=== PATIENT | female | born 1965 | race Caucasian/White ===

== ENCOUNTER 2018-04-11 22:26 | Emergency (ER) | payer SELFPAY ==
[2018-04-11 22:50] VITALS: BP 167/94; PULSE 76; RESP 18; TEMP 97.9; O2SAT 98
[2018-04-11 22:58] VITALS: RESP 18; O2SAT 98
[2018-04-11] MEDS ORDERED: ALUMINUM/MAGNESIUM/SIMETH 30 ML CUP PO ONE (23:00)
[2018-04-11] MEDS ORDERED: NITROGLYCERIN 0.4 MG SL 25 TABS/BTL SL ONE (23:00)
[2018-04-11] MEDS ORDERED: ASPIRIN 81 MG CHEW TAB PO ONE (23:00)
[2018-04-11] MEDS ORDERED: LIDOCAINE VISCOUS 2% SOLN 15 ML UDC PO ONE (23:00)
--- NOTE | 2018-04-11 23:11 | RADRPT ---
EXAM DATE: 04/11/2018 11:08 PM EDT AGE/SEX: 53 years / Female INDICATIONS: Chest heaviness. CLINICAL DATA: This is the patient's initial encounter. Patient reports that signs and symptoms have been present for 1 day and indicates a pain score of 3/10. MEDICAL/SURGICAL HISTORY: None. None. COMPARISON: No prior exams available for comparison. FINDINGS: The lungs are clear without infiltrate, nodule, or mass. There is no appreciable pleural effusion for technique. Heart and mediastinum are unremarkable. CONCLUSION: No acute cardiopulmonary disease. Electronically signed by: Khadar Cazares MD 04/11/2018 11:09 PM EDT
--- NOTE | 2018-04-11 23:12 | PD ---
HPI Chief Complaint: Chest Pain Time Seen by Provider: 22:46 Travel History International Travel<30 days: No Contact w/Intl Traveler<30days: No Traveled to known affect area: No History of Present Illness HPI The patient is a 53-year-old female who presents to emergency department for chest pain. The patient states her symptoms started approximately 2 hours prior to arrival. The patient was at home, resting, which she developed back pain in the upper thoracic region. The pain radiated around to the front of the chest, the substernal, described as a "elephant sitting on my chest ", and then went to the upper abdomen. The patient complains of epigastric abdominal cramping with mild nausea. She denies any vomiting or diarrhea. The patient did note a foul taste in her mouth, possibly secondary to reflux. The patient states she had a stress test approximately 12 years ago, treadmill, which was negative. She denies any history of coronary artery disease, hypertension, hyperlipidemia, tobacco use, or diabetes. The patient does state her father had a heart attack in his 50s, however, he smoked 3 packs of unfiltered cigarettes daily and was an alcoholic per her report. She states her mother is in her 80s and healthy. She denies any exertional component. She denies any cough, diaphoresis, or shortness of breath. Symptoms are moderate. PFSH Past Medical History Anxiety: Yes Tetanus Vaccination: Unknown Influenza Vaccination: No ?: Not LMP: 1 MONTH AGO Menopausal: Yes Past Surgical History Gynecologic Surgery: Yes (TUBAL RUPTURE) Social History Alcohol Use: Yes (2-3X WEEKLY) Tobacco Use: No Substance Use: No Allergies-Medications (Allergen,Severity, Reaction): Coded Allergies: No Known Allergies (Unverified , 04/11/18) Reported Meds & Prescriptions Reported Meds & Active Scripts Active No Active Prescriptions or Reported Medications Review of Systems Except as stated in HPI: all other systems reviewed are Neg HENT: No: Lightheadedness Cardiovascular: Positive: Chest Pain or Discomfort, No: Dyspnea on exertion Respiratory: No: Shortness of Breath Gastrointestinal: Positive: Nausea, Abdominal Pain (Epigastric abdominal cramping), Indigestion, No: Vomiting Musculoskeletal: No: Weakness, Edema Neurologic: No: Dizziness Physical Exam Narrative GENERAL: Awake, alert, pleasant 53-year-old female who appears her stated age and is in no acute respiratory distress. SKIN: Focused skin assessment warm/dry. HEAD: Atraumatic. Normocephalic. EYES: Pupils equal and round. No scleral icterus. No injection or drainage. ENT: No nasal bleeding or discharge. Mucous membranes pink and moist. NECK: Trachea midline. No JVD. CARDIOVASCULAR: Regular rate and rhythm. No murmur appreciated. RESPIRATORY: No accessory muscle use. Clear to auscultation. Breath sounds equal bilaterally. GASTROINTESTINAL: Abdomen soft, minimal epigastric tenderness. MUSCULOSKELETAL: No obvious deformities. No clubbing. No cyanosis. No edema. NEUROLOGICAL: Awake and alert. No obvious cranial nerve deficits. Motor grossly within normal limits. Normal speech. PSYCHIATRIC: Appropriate mood and affect; insight and judgment normal. Data Data Last Documented VS Vital Signs Date Time Temp Pulse Resp B/P (MAP) Pulse Ox O2 Delivery O2 Flow Rate FiO2 04/12/18 00:11 78 144/75 (98) 99 Room Air 04/11/18 23:55 16 04/11/18 22:50 97.9 Orders Orders Ckmb (Isoenzyme) Profile (04/11/18 22:55) Complete Blood Count With Diff (04/11/18 22:55) Comprehensive Metabolic Panel (04/11/18 22:55) Magnesium (Mg) (04/11/18 22:55) Prothrombin Time / Inr (Pt) (04/11/18 22:55) Act Partial Throm Time (Ptt) (04/11/18 22:55) Troponin I (04/11/18 22:55) Lipase (04/11/18 22:55) Chest, Single Ap (04/11/18 22:55) Ecg Monitoring (04/11/18 22:55) Bilateral Bp Monitoring (04/11/18 22:55) Iv Access Insert/Monitor (04/11/18 22:55) Oximetry (04/11/18 22:55) Oxygen Administration (04/11/18 22:55) Aspirin Chew (Aspirin Chew) (04/11/18 23:00) Nitroglycerin Sl (Nitrostat Sl) (04/11/18 23:00) Al-Mag Hy-Si 40-40-4 Mg/Ml Liq (Mag-Al P (04/11/18 23:00) Lidocaine 2% Viscous (Xylocaine 2% Visco (04/11/18 23:00) Ondansetron Odt (Zofran Odt) (04/12/18 00:00) Troponin I (04/13/18 02:00) Nitroglycerin Sl (Nitrostat Sl) (04/12/18 00:15) Dicyclomine (Bentyl) (04/12/18 00:30) Labs Laboratory Tests Test 04/11/18 23:00 White Blood Count 9.8 TH/MM3 Red Blood Count 4.05 MIL/MM3 Hemoglobin 13.1 GM/DL Hematocrit 38.5 % Mean Corpuscular Volume 95.1 FL Mean Corpuscular Hemoglobin 32.3 PG Mean Corpuscular Hemoglobin Concent 34.0 % Red Cell Distribution Width 12.6 % Platelet Count 220 TH/MM3 Mean Platelet Volume 9.0 FL Neutrophils (%) (Auto) 59.6 % Lymphocytes (%) (Auto) 28.6 % Monocytes (%) (Auto) 8.4 % Eosinophils (%) (Auto) 3.0 % Basophils (%) (Auto) 0.4 % Neutrophils # (Auto) 5.9 TH/MM3 Lymphocytes # (Auto) 2.8 TH/MM3 Monocytes # (Auto) 0.8 TH/MM3 Eosinophils # (Auto) 0.3 TH/MM3 Basophils # (Auto) 0.0 TH/MM3 CBC Comment DIFF FINAL Differential Comment Prothrombin Time 9.8 SEC Prothromb Time International Ratio 1.0 RATIO Activated Partial Thromboplast Time 27.5 SEC Blood Urea Nitrogen 15 MG/DL Creatinine 1.10 MG/DL Random Glucose 126 MG/DL Total Protein 7.4 GM/DL Albumin 3.6 GM/DL Calcium Level 8.5 MG/DL Magnesium Level 1.9 MG/DL Alkaline Phosphatase 76 U/L Aspartate Amino Transf (AST/SGOT) 12 U/L Alanine Aminotransferase (ALT/SGPT) 22 U/L Total Bilirubin 0.1 MG/DL Sodium Level 138 MEQ/L Potassium Level 3.7 MEQ/L Chloride Level 107 MEQ/L Carbon Dioxide Level 23.8 MEQ/L Anion Gap 7 MEQ/L Estimat Glomerular Filtration Rate 52 ML/MIN Total Creatine Kinase 51 U/L Troponin I LESS THAN 0.02 NG/ML Lipase 190 U/L MDM Medical Decision Making Medical Screen Exam Complete: Yes Emergency Medical Condition: Yes Medical Record Reviewed: Yes Interpretation(s) EKG reveals normal sinus rhythm with a rate 82. Nonspecific ST changes. Inverted T-wave in lead III. Differential Diagnosis Differential diagnosis includes ACS, STEMI, GERD, esophageal spasm, gastritis, peptic ulcer disease, esophageal spasm, dissection. Narrative Course IV was ordered, however, patient declined, and the patient was placed on cardiac telemetry monitoring and continuous pulse oximetry monitoring. IV was established, labs are drawn and sent, and the patient was placed on cardiac telemetry monitoring and continuous pulse oximetry monitoring. EKG was ordered and interpreted. Chest x-ray was obtained. The patient was administered aspirin, nitroglycerin sublingual, GI cocktail. Chest x-ray is unremarkable. The patient states she had some upper abdominal cramping and subsequently threw up after the GI cocktail. She initially had some relief with the nitro, however , her discomfort came back. A second dose of nitroglycerin sublingual did not improve her pain. The patient once again refused an IV. I had a discussion with the patient regarding 23 hour observation of the chest pain center versus IV fluids and medications for her cramping. The patient does not want an IV placed. As the patient continued to complain of abdominal cramping, she was administered Bentyl 20 mg orally. The patient appears to have epigastric discomfort with cramping as well as substernal chest pain, could be GERD/ esophagitis/esophageal spasm versus atypical ACS. I had a discussion with the patient regarding 23 hour observation, she does not want to be a 23 hour observation. Therefore, second troponin was ordered at the 3 hour level. Diagnosis Primary Impression: Atypical chest pain Additional Impression: Abdominal cramping Patient Instructions: General Instructions Additional Instructions: Follow-up with your primary physician. Please provide the patient a copy of her EKG, lab results, chest x-ray results at discharge. Take a baby aspirin daily. Return if symptoms worsen or progress. Scripts No Active Prescriptions or Reported Meds Disposition: DISCHARGE HOME Condition: Stable Berry Melchor MD April 11, 2018 23:12
[2018-04-11 23:20] LABS: AUTOMATED NEUTROPHIL # 5.9 TH/MM3 (1.8-7.7); BASOPHIL % 0.4 % (0.0-2.0); EOSINOPHIL # 0.3 TH/MM3 (0-0.4); HEMATOCRIT 38.5 % (35.0-46.0); HEMOGLOBIN 13.1 GM/DL (11.6-15.3); LYMPH % 28.6 % (9.0-44.0); LYMPHOCYTE # 2.8 TH/MM3 (1.0-4.8); MEAN CELL VOLUME 95.1 FL (80.0-100.0); MEAN CORPUSCULAR HEMOGLOBIN 32.3 PG (27.0-34.0); MONO % 8.4 % (0.0-8.0); MONOCYTE # 0.8 TH/MM3 (0-0.9); NEUT % 59.6 % (16.0-70.0); PLATELET COUNT 220 TH/MM3 (150-450); RED BLOOD COUNT 4.05 MIL/MM3 (4.00-5.30); RED CELL DISTRIBUTION WIDTH 12.6 % (11.6-17.2); WHITE BLOOD COUNT 9.8 TH/MM3 (4.0-11.0)
[2018-04-11 23:21] VITALS: BP_SYST 149; BP_SYST 156; BP_DIAS 84; BP_DIAS 89; PULSE 73; RESP 16; O2SAT 100
[2018-04-11 23:28] VITALS: BP 128/75; PULSE 85; RESP 16; O2SAT 98
[2018-04-11 23:30] LABS: CHLORIDE 107 MEQ/L (98-107); SODIUM (NA) 138 MEQ/L (136-145)
[2018-04-11 23:32] VITALS: BP 143/72; PULSE 75; RESP 16; O2SAT 97
[2018-04-11 23:34] LABS: ALBUMIN 3.6 GM/DL (3.4-5.0); BICARBONATE 23.8 MEQ/L (21.0-32.0); CALCIUM 8.5 MG/DL (8.5-10.1)
[2018-04-11 23:35] LABS: BLOOD UREA NITROGEN 15 MG/DL (7-18); GLUCOSE,RANDOM 126 MG/DL (74-106); MAGNESIUM 1.9 MG/DL (1.5-2.5)
[2018-04-11 23:36] LABS: PROTHROMBIN TIME - PATIENT 9.8 SEC (9.8-11.6)
[2018-04-11 23:37] LABS: ALT (GPT) 22 U/L (10-53); AST (GOT) 12 U/L (15-37); GLOMERULAR FILTRATION RATE 52 ML/MIN (>89)
[2018-04-11 23:39] LABS: TOTAL BILIRUBIN ADULT 0.1 MG/DL (0.2-1.0); TOTAL PROTEIN 7.4 GM/DL (6.4-8.2)
[2018-04-11 23:40] LABS: ALKALINE PHOSPHATASE 76 U/L (45-117)
[2018-04-11 23:43] LABS: TROPONIN I LESS THAN 0.02 NG/ML (0.02-0.05)
[2018-04-11 23:55] VITALS: BP 156/84; PULSE 73; RESP 16; O2SAT 99
[2018-04-12] MEDS ORDERED: ONDANSETRON ODT 4 MG TAB PO ONE
[2018-04-12 00:11] VITALS: BP 144/75; PULSE 78; O2SAT 99
[2018-04-12] MEDS ORDERED: NITROGLYCERIN 0.4 MG SL 25 TABS/BTL SL ONE (00:15)
[2018-04-12] MEDS ORDERED: DICYCLOMINE HCL 10 MG CAP PO ONE (00:30)
[2018-04-12 00:35] VITALS: BP 136/75; PULSE 80; RESP 16; O2SAT 99
[2018-04-12 01:30] VITALS: BP 140/84; PULSE 75; RESP 16; O2SAT 99
[2018-04-12 02:54] VITALS: BP 126/84; PULSE 78; RESP 16; O2SAT 100
--- NOTE | 2018-04-12 03:03 | PD ---
Physical Exam Date Seen by Provider: April 12, 2018 Narrative This patient was checked out to me at 1 AM pending a repeat troponin. In the meantime, the patient reports marked improvement in her symptoms with Bentyl. Data Data Last Documented VS Vital Signs Date Time Temp Pulse Resp B/P (MAP) Pulse Ox O2 Delivery O2 Flow Rate FiO2 04/12/18 02:54 78 16 126/84 (98) 100 Room Air 04/11/18 22:50 97.9 Orders Orders Ckmb (Isoenzyme) Profile (04/11/18 22:55) Complete Blood Count With Diff (04/11/18 22:55) Comprehensive Metabolic Panel (04/11/18 22:55) Magnesium (Mg) (04/11/18 22:55) Prothrombin Time / Inr (Pt) (04/11/18 22:55) Act Partial Throm Time (Ptt) (04/11/18 22:55) Troponin I (04/11/18 22:55) Lipase (04/11/18 22:55) Chest, Single Ap (04/11/18 22:55) Ecg Monitoring (04/11/18 22:55) Bilateral Bp Monitoring (04/11/18 22:55) Iv Access Insert/Monitor (04/11/18 22:55) Oximetry (04/11/18 22:55) Oxygen Administration (04/11/18 22:55) Aspirin Chew (Aspirin Chew) (04/11/18 23:00) Nitroglycerin Sl (Nitrostat Sl) (04/11/18 23:00) Al-Mag Hy-Si 40-40-4 Mg/Ml Liq (Mag-Al P (04/11/18 23:00) Lidocaine 2% Viscous (Xylocaine 2% Visco (04/11/18 23:00) Ondansetron Odt (Zofran Odt) (04/12/18 00:00) Troponin I (04/13/18 02:00) Nitroglycerin Sl (Nitrostat Sl) (04/12/18 00:15) Dicyclomine (Bentyl) (04/12/18 00:30) Troponin I (04/12/18 01:59) Ed Discharge Order (04/12/18 02:55) Labs Laboratory Tests Test 04/11/18 23:00 04/12/18 01:55 White Blood Count 9.8 TH/MM3 Red Blood Count 4.05 MIL/MM3 Hemoglobin 13.1 GM/DL Hematocrit 38.5 % Mean Corpuscular Volume 95.1 FL Mean Corpuscular Hemoglobin 32.3 PG Mean Corpuscular Hemoglobin Concent 34.0 % Red Cell Distribution Width 12.6 % Platelet Count 220 TH/MM3 Mean Platelet Volume 9.0 FL Neutrophils (%) (Auto) 59.6 % Lymphocytes (%) (Auto) 28.6 % Monocytes (%) (Auto) 8.4 % Eosinophils (%) (Auto) 3.0 % Basophils (%) (Auto) 0.4 % Neutrophils # (Auto) 5.9 TH/MM3 Lymphocytes # (Auto) 2.8 TH/MM3 Monocytes # (Auto) 0.8 TH/MM3 Eosinophils # (Auto) 0.3 TH/MM3 Basophils # (Auto) 0.0 TH/MM3 CBC Comment DIFF FINAL Differential Comment Prothrombin Time 9.8 SEC Prothromb Time International Ratio 1.0 RATIO Activated Partial Thromboplast Time 27.5 SEC Blood Urea Nitrogen 15 MG/DL Creatinine 1.10 MG/DL Random Glucose 126 MG/DL Total Protein 7.4 GM/DL Albumin 3.6 GM/DL Calcium Level 8.5 MG/DL Magnesium Level 1.9 MG/DL Alkaline Phosphatase 76 U/L Aspartate Amino Transf (AST/SGOT) 12 U/L Alanine Aminotransferase (ALT/SGPT) 22 U/L Total Bilirubin 0.1 MG/DL Sodium Level 138 MEQ/L Potassium Level 3.7 MEQ/L Chloride Level 107 MEQ/L Carbon Dioxide Level 23.8 MEQ/L Anion Gap 7 MEQ/L Estimat Glomerular Filtration Rate 52 ML/MIN Total Creatine Kinase 51 U/L Troponin I LESS THAN 0.02 NG/ML LESS THAN 0.02 NG/ML Lipase 190 U/L [facility] Supervised Visit with JOSIE: No Narrative Course Repeat troponin is less than 0.02 Diagnosis Primary Impression: Atypical chest pain Additional Impression: Abdominal cramping Referrals: Moses Werner DO (PCP) Patient Instructions: General Instructions, Chest Pain (ED), Abdominal Pain (ED ) Departure Forms: Tests/Procedures Additional Instruction: Follow-up with your primary physician. Please provide the patient a copy of her EKG, lab results, chest x-ray results at discharge. Take a baby aspirin daily. Return if symptoms worsen or progress. Scripts No Active Prescriptions or Reported Meds Disposition: 01 DISCHARGE HOME Condition: Stable Ciara Caputo MD April 12, 2018 03:03
--- NOTE | 2018-04-12 14:05 | EKG ---
Date Performed: 04/11/2018 Time Performed: 22:31:50 PTAGE: 53 years EKG: Sinus rhythm MINIMAL ST DEPRESSION BORDERLINE ECG NO PREVIOUS TRACING DOCTOR: Delvin Pdailla Interpretating Date/Time 04/12/2018 14:02:18
== END 2018-04-12 03:09 | disposition home or self-care (01) ==
LOC: PHED 22:26
DX: R07.89 Other chest pain (principal); R10.13 Epigastric pain; R94.31 Abnormal electrocardiogram [ECG] [EKG]; F41.9 Anxiety disorder, unspecified
CPT/HCPCS: 71045; 80053; 82550; 83690; 83735; 84484; 85025; 85610; 85730; 93005; 99285